=== PATIENT | male | born 1950 | race African-American/Black ===

== ENCOUNTER 2017-02-06 00:17 | Emergency (ER) | payer MEDICARE, MEDICAID ==
[~2017-02-06] VITALS: Ht 175.3 cm; Wt 100.0 kg
[2017-02-06] MEDS ORDERED: METHYLPREDNISOLONE SOD SUCC 125 MG/2 ML VIAL IV STA (00:57)
[2017-02-06] MEDS ORDERED: LEVOFLOXACIN 750MG PREMIX 150 ML IV ONE (01:00)
[2017-02-06] MEDS ORDERED: IPRATROPIUM/ALBUTEROL 0.5-3(2.5)MG/3ML NEB HHN ONE (01:00)
[2017-02-06 01:17] LABS: BASOPHILS % 0.6 % (0.0-2.0); EOSINOPHILS % 2.5 % (0.0-5.0); HEMATOCRIT. 24.3 % (42.0-52.0); LYMPHOCYTES % 12.6 % (20.0-50.0); MEAN CORPUSCULAR VOLUME 81.6 fL (80.0-94.0); MEAN PLATELET VOLUME 7.5 fl (7.4-10.4); MONOCYTES % 9.9 % (2.0-8.0); NEUTROPHILS % 74.4 % (40.0-76.0); PLATELET 311 x1000/uL (130-400); RED BLOOD CELL COUNT 2.97 mill/uL (4.7-6.1)
[2017-02-06 01:30] LABS: D-DIMER 4.4 mg/L FEU (<0.50); PROTHROMBIN TIME 10.9 sec
[2017-02-06 01:35] LABS: CARBON DIOXIDE 26 mEq/L (21-32); CHLORIDE 102 mEq/L (98-107); CREATINE KINASE 140 IU/L (39-308); TROPONIN I < 0.02 ng/mL (0.00-0.04)
[2017-02-06 05:51] VITALS: BP 153/89
[2017-02-06] MEDS ORDERED: SODIUM CHLORIDE 0.9% 10ML VIAL ONE (06:00)
[2017-02-06] MEDS ORDERED: IOHEXOL-350 100 ML BOTTLE ONE (06:00)
== END 2017-02-06 06:02 | disposition home or self-care (01) ==
LOC: ER 01:07
DX: J40 Bronchitis, not specified as acute or chronic (principal); D64.9 Anemia, unspecified; R16.0 Hepatomegaly, not elsewhere classified; I10 Essential (primary) hypertension
CPT/HCPCS: 36415; 71010; 71275; 80053; 82550; 83605; 83690; 83880; 84443; 84484; 85025; 85379; 85610; 87040; 93005; 94640; 96365; 96375; 99285; A4216; J1956; J2930; Q9967; J7620

== ENCOUNTER 2017-02-14 01:10 | Emergency (ER) | payer MEDICARE, MEDICAID ==
[~2017-02-14] VITALS: Ht 175.3 cm; Wt 103.0 kg
[2017-02-14 01:26] VITALS: BP 148/75
[2017-02-19] MEDS ORDERED: CLIN300C11 PO (05:48)
[2017-02-19] MEDS ORDERED: P50 PO (05:48)
[2017-02-19] MEDS ORDERED: METO50TA5 PO (05:48)
== END 2017-02-14 03:23 | disposition home or self-care (01) ==
LOC: ER 01:10
DX: Z48.01 Encounter for change or removal of surgical wound dressing (principal); I10 Essential (primary) hypertension
CPT/HCPCS: 99282

== ENCOUNTER 2017-03-12 23:43 | Inpatient (IN) | payer MEDICARE, MEDICAID ==
[~2017-03-12] VITALS: Ht 177.8 cm; Wt 81.6 kg
[~2017-03-12 23:43] MED LIST: CLIN300C11 PO; METO50TA5 PO; P50 PO
[2017-03-13] VITALS (11 sets, daily range): BP systolic 110–132; BP diastolic 65–91
[2017-03-13] MEDS ORDERED: ACETAMINOPHEN 325MG TABLET PO STA (00:09)
[2017-03-13] MEDS ORDERED: SODIUM CHLORIDE 0.9% 1000ML BAG (SEPSIS BOLUS) IV ONE (00:15)
[2017-03-13] MEDS ORDERED: LEVOFLOXACIN 750MG PREMIX 150 ML IV ONE (00:15)
[2017-03-13 01:02] LABS: CLARITY URINE TURBID (CLEAR); COLOR URINE DARK YELLOW (YELLOW); GLUCOSE URINE NEGATIVE (NEGATIVE); KETONES URINE NEGATIVE (NEGATIVE); LEUKOCYTE ESTERASE URINE TRACE (NEGATIVE); NITRITE URINE NEGATIVE (NEGATIVE); OCCULT BLOOD URINE TRACE (NEGATIVE); PROTEIN URINE 1+ (NEGATIVE); SPECIFIC GRAVITY URINE 1.024 (1.005-1.030); UROBILINOGEN URINE 0.2 E.U./dL (0.2-1.0)
[2017-03-13 01:03] LABS: HEMATOCRIT. 23.9 % (42.0-52.0); HEMOGLOBIN. 7.8 g/dL (14.0-18.0); MEAN CORPUSCULAR HEMOGLOBIN 25.9 pg (28.0-32.0); MEAN CORPUSCULAR VOLUME 78.8 fL (80.0-94.0); MEAN PLATELET VOLUME 7.1 fl (7.4-10.4); PLATELET 412 x1000/uL (130-400); RED BLOOD CELL COUNT 3.03 mill/uL (4.7-6.1); RED CELL DISTRIBUTION WIDTH 19.3 % (11.6-14.6)
[2017-03-13 01:04] LABS: INR 1.2; PROTHROMBIN TIME 12.3 sec
[2017-03-13 01:12] LABS: CARBON DIOXIDE 26 mEq/L (21-32); CHLORIDE 100 mEq/L (98-107); TROPONIN I < 0.02 ng/mL (0.00-0.04)
[2017-03-13 02:02] LABS: PLATELET ESTIMATE NORMAL
[2017-03-13] MEDS ORDERED: ASPIRIN 81MG TABLET PO ONE (02:30)
[2017-03-13] MEDS ORDERED: POTASSIUM CHLORIDE 20MEQ TABLET SR PO ONE (03:00)
[2017-03-13] MEDS ORDERED: METO50TA5 PO (10:09)
[2017-03-13] MEDS ORDERED: LOSA50TA20 PO (10:09)
[2017-03-13] MEDS ORDERED: METR-112 PO (10:09)
[2017-03-13] MEDS ORDERED: vancomycin (10:09)
[2017-03-13] MEDS ORDERED: FURO-151 PO (10:09)
[2017-03-13] MEDS ORDERED: ACETAMINOPHEN 650MG/20.3ML UDC PO PRN (13:15)
[2017-03-13] MEDS ORDERED: ONDANSETRON HCL 4MG/2ML VIAL IV PRN ×2 (13:15→13:30)
[2017-03-13] MEDS ORDERED: CLONIDINE 0.1MG TABLET PO PRN (13:15)
[2017-03-13] MEDS ORDERED: ACETAMINOPHEN 325MG TABLET PO PRN (13:30)
[2017-03-13] MEDS ORDERED: TRAMADOL 50MG TABLET PO PRN (13:30)
[2017-03-13] MEDS: PANTOPRAZOLE SODIUM 40 MG/VIAL IV SCH (15:08)
[2017-03-13] MEDS: PIPERACILLIN/TAZ 3.375G PREMIX 50 ML IV SCH ×2 (15:09→20:57)
[2017-03-13] MEDS: SODIUM CHLORIDE 0.45% 1,000 ML IV SCH (15:10)
[2017-03-13 15:36] LABS: *AMPHETAMINES SCREEN URINE NEGATIVE (NEGATIVE); *BARBITURATES SCREEN URINE NEGATIVE (NEGATIVE); *BENZODIAZEPINES SCREEN URINE PRESUMTIVE POSITIVE (NEGATIVE); *COCAINE SCREEN URINE NEGATIVE (NEGATIVE); CANNABINOID URINE SCREEN NEGATIVE (NEGATIVE); METHADONE URINE SCREEN NEGATIVE (NEGATIVE); OPIATES URINE SCREEN NEGATIVE (NEGATIVE); PHENCYCLIDINE URINE SCREEN NEGATIVE (NEGATIVE)
[2017-03-13] MEDS: IPRATROPIUM/ALBUTEROL 0.5-3(2.5)MG/3ML NEB HHN PRN ×2 (16:10→22:57)
[2017-03-13] MEDS: FUROSEMIDE 40MG TABLET PO SCH (18:12)
[2017-03-13] MEDS: LOSARTAN POTASSIUM 50 MG TABLET PO SCH (20:58)
[2017-03-13] MEDS: METRONIDAZOLE 500MG TABLET PO SCH (20:58)
[2017-03-13] MEDS: METOPROLOL TARTRATE 25MG TABLET PO SCH (20:58)
[2017-03-13] MEDS ORDERED: ZOLPIDEM TARTRATE 5MG TABLET PO PRN (21:00)
[2017-03-13] MEDS: VANCOMYCIN HCL 1000 MG/20 ML ORAL PO SCH (21:20)
[2017-03-14] VITALS (9 sets, daily range): BP systolic 115–158; BP diastolic 63–96
[2017-03-14] MEDS: PIPERACILLIN/TAZ 3.375G PREMIX 50 ML IV SCH ×4 (02:21→20:26)
[2017-03-14] MEDS: IPRATROPIUM/ALBUTEROL 0.5-3(2.5)MG/3ML NEB HHN PRN ×3 (04:34→17:35)
[2017-03-14 06:35] LABS: CHLORIDE 103 mEq/L (98-107)
[2017-03-14 06:38] LABS: HEMATOCRIT. 22.7 % (42.0-52.0); HEMOGLOBIN. 7.4 g/dL (14.0-18.0); MEAN CORPUSCULAR HEMOGLOBIN 26.2 pg (28.0-32.0); MEAN CORPUSCULAR VOLUME 80.1 fL (80.0-94.0); MEAN PLATELET VOLUME 7.7 fl (7.4-10.4); PLATELET 333 x1000/uL (130-400); RED BLOOD CELL COUNT 2.83 mill/uL (4.7-6.1); RED CELL DISTRIBUTION WIDTH 18.9 % (11.6-14.6)
[2017-03-14 06:39] LABS: CARBON DIOXIDE 24 mEq/L (21-32); PHOSPHORUS 2.5 mg/dL (2.5-4.9); TOTAL IRON BINDING CAPACITY 135 ug/dL (250-450)
[2017-03-14] MEDS: PANTOPRAZOLE SODIUM 40 MG/VIAL IV SCH (08:47)
[2017-03-14] MEDS: METOPROLOL TARTRATE 25MG TABLET PO SCH ×2 (08:48→20:26)
[2017-03-14] MEDS: FUROSEMIDE 40MG TABLET PO SCH ×2 (08:48→17:10)
[2017-03-14] MEDS: METRONIDAZOLE 500MG TABLET PO SCH ×2 (08:48→20:26)
[2017-03-14] MEDS: LOSARTAN POTASSIUM 50 MG TABLET PO SCH ×2 (08:48→20:26)
[2017-03-14] MEDS: POTASSIUM CHLORIDE 20MEQ TABLET SR PO SCH (08:54)
[2017-03-14] MEDS: VANCOMYCIN HCL 1000 MG/20 ML ORAL PO SCH ×2 (08:56→12:38)
[2017-03-14] MEDS: FERROUS SULFATE 325MG TABLET PO SCH ×2 (12:38→17:10)
[2017-03-14] MEDS: ASCORBIC ACID 500 MG TABLET PO SCH ×2 (12:38→20:26)
[2017-03-14 14:11] LABS: PLATELET ESTIMATE NORMAL
[2017-03-14] MEDS: SODIUM CHLORIDE 0.45% 1,000 ML IV SCH ×2 (16:28→23:11)
[2017-03-15] VITALS: BP 120/74
[2017-03-15] MEDS: IPRATROPIUM/ALBUTEROL 0.5-3(2.5)MG/3ML NEB HHN PRN ×3 (02:23→20:59)
[2017-03-15] MEDS: PIPERACILLIN/TAZ 3.375G PREMIX 50 ML IV SCH ×4 (02:50→21:58)
[2017-03-15 04:00] VITALS: BP 129/88
[2017-03-15 06:44] LABS: BASOPHILS % 0.5 % (0.0-2.0); EOSINOPHILS % 1.3 % (0.0-5.0); HEMATOCRIT. 24.7 % (42.0-52.0); HEMOGLOBIN. 8.1 g/dL (14.0-18.0); MEAN CORPUSCULAR HEMOGLOBIN 26.3 pg (28.0-32.0); MEAN CORPUSCULAR VOLUME 80.4 fL (80.0-94.0); MEAN PLATELET VOLUME 7.5 fl (7.4-10.4); MONOCYTES % 11.3 % (2.0-8.0); NEUTROPHILS % 71.9 % (40.0-76.0); PLATELET 333 x1000/uL (130-400); RED BLOOD CELL COUNT 3.07 mill/uL (4.7-6.1); RED CELL DISTRIBUTION WIDTH 18.5 % (11.6-14.6)
[2017-03-15 07:35] LABS: CARBON DIOXIDE 26 mEq/L (21-32); CHLORIDE 103 mEq/L (98-107); PHOSPHORUS 2.4 mg/dL (2.5-4.9)
[2017-03-15 08:00] VITALS: BP 145/97
[2017-03-15] MEDS: POTASSIUM CHLORIDE 20MEQ TABLET SR PO SCH (08:58)
[2017-03-15] MEDS: FUROSEMIDE 40MG TABLET PO SCH ×2 (08:59→18:34)
[2017-03-15] MEDS: METRONIDAZOLE 500MG TABLET PO SCH ×2 (08:59→21:58)
[2017-03-15] MEDS: FERROUS SULFATE 325MG TABLET PO SCH ×3 (08:59→18:34)
[2017-03-15] MEDS: PANTOPRAZOLE SODIUM 40 MG/VIAL IV SCH (09:00)
[2017-03-15] MEDS: LOSARTAN POTASSIUM 50 MG TABLET PO SCH ×2 (09:00→21:58)
[2017-03-15] MEDS: METOPROLOL TARTRATE 25MG TABLET PO SCH ×2 (09:00→21:59)
[2017-03-15] MEDS: ASCORBIC ACID 500 MG TABLET PO SCH ×2 (09:15→21:58)
[2017-03-15] MEDS ORDERED: POTASSIUM CHLORIDE 20MEQ TABLET SR PO SCH (10:15)
[2017-03-15 12:00] VITALS: BP 135/82
[2017-03-15] MEDS ORDERED: HEPARIN 100 UNITS/1 ML VIAL IVF PRN (13:45)
[2017-03-15 16:00] VITALS: BP 136/75
[2017-03-15] MEDS: SODIUM CHLORIDE 0.45% 1,000 ML IV SCH (18:36)
[2017-03-15 20:00] VITALS: BP 130/82
[2017-03-16] VITALS (7 sets, daily range): BP systolic 135–148; BP diastolic 80–95
[2017-03-16] MEDS: IPRATROPIUM/ALBUTEROL 0.5-3(2.5)MG/3ML NEB HHN PRN ×4 (00:39→17:27)
[2017-03-16] MEDS: PIPERACILLIN/TAZ 3.375G PREMIX 50 ML IV SCH ×3 (04:12→14:52)
[2017-03-16 06:23] LABS: BASOPHILS % 0.4 % (0.0-2.0); HEMATOCRIT. 25.5 % (42.0-52.0); HEMOGLOBIN. 8.5 g/dL (14.0-18.0); LYMPHOCYTES % 18.9 % (20.0-50.0); MEAN CORPUSCULAR HEMOGLOBIN 26.7 pg (28.0-32.0); MEAN CORPUSCULAR VOLUME 80.5 fL (80.0-94.0); MEAN PLATELET VOLUME 7.3 fl (7.4-10.4); MONOCYTES % 11.4 % (2.0-8.0); NEUTROPHILS % 68.3 % (40.0-76.0); PLATELET 352 x1000/uL (130-400); RED BLOOD CELL COUNT 3.17 mill/uL (4.7-6.1); RED CELL DISTRIBUTION WIDTH 18.8 % (11.6-14.6)
[2017-03-16 07:16] LABS: CARBON DIOXIDE 26 mEq/L (21-32); CHLORIDE 102 mEq/L (98-107); PHOSPHORUS 2.4 mg/dL (2.5-4.9)
[2017-03-16] MEDS: PANTOPRAZOLE SODIUM 40 MG/VIAL IV SCH (08:28)
[2017-03-16] MEDS: ASCORBIC ACID 500 MG TABLET PO SCH (08:28)
[2017-03-16] MEDS: METRONIDAZOLE 500MG TABLET PO SCH (08:28)
[2017-03-16] MEDS: LOSARTAN POTASSIUM 50 MG TABLET PO SCH (08:29)
[2017-03-16] MEDS: POTASSIUM CHLORIDE 20MEQ TABLET SR PO SCH (08:29)
[2017-03-16] MEDS: FERROUS SULFATE 325MG TABLET PO SCH ×3 (08:30→17:58)
[2017-03-16] MEDS: SODIUM CHLORIDE 0.45% 1,000 ML IV SCH (08:34)
[2017-03-16] MEDS ORDERED: FUROSEMIDE 40MG TABLET PO SCH (09:00)
[2017-03-16] MEDS: METOPROLOL TARTRATE 25MG TABLET PO SCH (09:08)
[2017-03-16] MEDS ORDERED: POTASSIUM CHLORIDE 20MEQ TABLET SR PO NR (11:00)
[2017-03-16] MEDS ORDERED: CEFTRIAXONE SODIUM 1 G/VIAL IM ONE (18:00)
[2017-03-16] MEDS ORDERED: CEFTRIAXONE 1 G PREMIX 50 ML IV NR (18:30)
== END 2017-03-16 21:00 | disposition home or self-care (01) | DRG 871 ==
LOC: ER 23:47 → 7WST 03-13 03:10 → ENRESERV 03-13 07:15 → 7WST 03-13 12:59
PROVIDERS: ADMIT Internal Medicine; ATTEND Internal Medicine
PROC: 30233N1 Transfusion of Nonautologous Red Blood Cells into Peripheral Vein, Percutaneous Approach (ICD-10-PCS; 2017-03-13)
PROC: B5181ZA Fluoroscopy of Superior Vena Cava using Low Osmolar Contrast, Guidance (ICD-10-PCS; principal; 2017-03-15)
PROC: 02HV33Z Insertion of Infusion Device into Superior Vena Cava, Percutaneous Approach (ICD-10-PCS; 2017-03-15)
PROC: B548ZZA Ultrasonography of Superior Vena Cava, Guidance (ICD-10-PCS; 2017-03-15)
DX: A41.9 Sepsis, unspecified organism (principal); J18.9 Pneumonia, unspecified organism; R65.21 Severe sepsis with septic shock; C18.9 Malignant neoplasm of colon, unspecified; I50.40 Unspecified combined systolic (congestive) and diastolic (congestive) heart failure; C22.0 Liver cell carcinoma; N39.0 Urinary tract infection, site not specified; J44.0 Chronic obstructive pulmonary disease with (acute) lower respiratory infection; R18.8 Other ascites; E44.0 Moderate protein-calorie malnutrition; K92.2 Gastrointestinal hemorrhage, unspecified; D64.9 Anemia, unspecified; I34.0 Nonrheumatic mitral (valve) insufficiency; I11.0 Hypertensive heart disease with heart failure; B96.20 Unspecified Escherichia coli [E. coli] as the cause of diseases classified elsewhere; D50.9 Iron deficiency anemia, unspecified; E66.01 Morbid (severe) obesity due to excess calories; E78.5 Hyperlipidemia, unspecified; E87.6 Hypokalemia; F14.10 Cocaine abuse, uncomplicated; I25.10 Atherosclerotic heart disease of native coronary artery without angina pectoris; N28.1 Cyst of kidney, acquired; Z86.19 Personal history of other infectious and parasitic diseases; Z68.25 Body mass index [BMI] 25.0-25.9, adult; Z79.899 Other long term (current) drug therapy
CPT/HCPCS: 36415; 36569; 71010; 74000; 76937; 77001; 80048; 80053; 80305; 81001; 82270; 82378; 83540; 83550; 83605; 83735; 83880; 84100; 84484; 85025; 85610; 86850; 86900; 86920; 87040; 87077; 87086; 87186; 87493; 93005; 93970; 94640; 94664; 96365; 96366; 99291; C1725; C9113; G0482; J0696; J1642; J1956; J2543; J3370; J7030; J7050; J7620; P9016